=== PATIENT | female | born 1950 | race Caucasian/White ===

== ENCOUNTER 2019-06-28 19:26 | Emergency (ER) | payer MEDICARE, OTHER ==
[2019-06-28] MEDS ORDERED: Take Home: Codeine/Promethazine 10-6.25 MG/5 ML Syrup 5 ML, 2 Cup Pack PO ONE (20:51)
--- NOTE | 2019-06-29 07:20 | EDM.PDOC ---
ED HPI GENERAL MEDICAL PROBLEM - General Chief Complaint: ENT Problem Stated Complaint: SORE THROAT Time Seen by Provider: 06/28/19 20:10 Source of Information: Reports: Patient History Limitations: Reports: No Limitations - History of Present Illness INITIAL COMMENTS - FREE TEXT/NARRATIVE: Pt. presents to ER with complaints of sore throat, congestion, and cough. States that she has been experiencing these symptoms for approx. 5-6 days. Denies any chills, but states that she has not been checking her temp. Pt. states that her cough is non-productive. No chest pain or shortness of breath. No nausea, vomiting, or diarrhea. Denies any rashes. Onset: Today Onset Date: 06/29/19 Duration: Constant, Getting Worse Location: Reports: Head, Face Quality: Reports: Dull Treatments TYPE COPYIST: Reports: NSAIDS Sore Throat Pain Score (Numeric/FACES): 5 - Related Data Allergies Allergy/AdvReac Type Severity Reaction Status Date / Time No Known Allergies Allergy Verified 06/28/19 20:20 Home Meds: Home Meds . [No Known Home Meds] 06/28/19 [History] Social & Family History - Tobacco Use Smoking Status *Q: Never Smoker - Recreational Drug Use Recreational Drug Use: No ED ROS GENERAL - Review of Systems Review Of Systems: See Below Constitutional: Reports: No Symptoms HEENT: Reports: Rhinitis, Sinus Problem, Throat Pain Respiratory: Reports: Cough Cardiovascular: Reports: No Symptoms Endocrine: Reports: No Symptoms GI/Abdominal: Reports: No Symptoms : Reports: No Symptoms Musculoskeletal: Reports: No Symptoms Skin: Reports: No Symptoms Neurological: Reports: No Symptoms Psychiatric: Reports: No Symptoms Hematologic/Lymphatic: Reports: No Symptoms Immunologic: Reports: No Symptoms ED EXAM, GENERAL - Physical Exam Exam: See Below Exam Limited By: No Limitations General Appearance: Alert, WD/WN, No Apparent Distress Eye Exam: Bilateral Eye: EOMI, Normal Fundi, Normal Inspection, PERRL Ears: Normal External Exam, Normal Canal, Hearing Grossly Normal, Normal TMs Ear Exam: Bilateral Ear: Auricle Normal, Canal Normal, TM normal Nose: Nasal Drainage, Clear Rhinorrhea Throat/Mouth: Normal Lips, Normal Teeth, Normal Gums, Normal Oropharynx, Normal Voice, No Airway Compromise, Inflammation Head: Atraumatic, Normocephalic Neck: Normal Inspection, Supple, Non-Tender, Full Range of Motion Respiratory/Chest: No Respiratory Distress, Lungs Clear, Normal Breath Sounds, No Accessory Muscle Use, Chest Non-Tender Cardiovascular: Normal Peripheral Pulses, Regular Rate, Rhythm, No Edema, No Gallop, No JVD, No Murmur, No Rub Peripheral Pulses: 4+: Radial (L) GI/Abdominal: Normal Bowel Sounds, Soft, Non-Tender, No Organomegaly, No Distention, No Abnormal Bruit, No Mass, Pelvis Stable (Female) Exam: Deferred Rectal (Female) Exam: Normal Exam, Normal Rectal Tone Back Exam: Normal Inspection, Full Range of Motion Extremities: Normal Inspection, Normal Range of Motion, Non-Tender, No Pedal Edema, Normal Capillary Refill Neurological: Alert, Oriented, CN II-XII Intact, Normal Cognition, Normal Gait, Normal Reflexes, No Motor/Sensory Deficits Psychiatric: Normal Affect, Normal Mood Skin Exam: Warm, Dry, Intact, Normal Color, No Rash Lymphatic: No Adenopathy Course - Vital Signs Last Recorded V/S: Last Vital Signs Temp 37.0 C 06/28/19 19:40 Pulse 84 06/28/19 19:40 Resp 16 06/28/19 19:40 BP 157/98 H 06/28/19 19:40 Pulse Ox 97 06/28/19 19:40 - Orders/Labs/Meds Orders: Active Orders 24 hr Category Date Time Status CULTURE STREP A CONFIRMATION [] Stat Lab 06/28/19 20:13 Results STREP SCRN A RAPID W CULT CONF [] Stat Lab 06/28/19 20:13 Results Meds: Medications Discontinued Medications Generic Name Dose Route Start Last Admin Trade Name Rashmi PRN Reason Stop Dose Admin Promethazine HCl/Codeine 1 packet 06/28/19 20:51 06/28/19 21:06 Take Home: Codeine/Prometh 10-6.25 Mg, 2 Pack PO 06/28/19 20:52 1 packet ONETIME ONE Administration Departure - Departure Time of Disposition: 21:09 Disposition: Home, Self-Care 01 Clinical Impression: URI (upper respiratory infection) - Discharge Information Instructions: Upper Respiratory Infection, Adult, [id number], Codeine; Promethazine oral solution Referrals: Amanda Monzon MD [Primary Care Provider] - Forms: ED Department Discharge Additional Instructions: Home to rest Phenergan with codeine suspension 1 tsp (5ml) every 4-6 hours as needed for cough Drink plenty of fluids Tylenol as needed for discomfort Recheck in clinic in 3-5 days if not improving Stay away from others until 24 hours after your last fever Sepsis Event Note - Evaluation Sepsis Screening Result: No Definite Risk - Focused Exam Vital Signs: Vital Signs Temp Pulse Resp BP Pulse Ox 06/28/19 19:40 37.0 C 84 16 157/98 H 97 Date Exam was Performed: 06/29/19 Time Exam was Performed: 07:15 - Problem List Review Problem List Initiated/Reviewed/Updated: Yes - My Orders Last 24 Hours: My Active Orders 06/28/19 20:13 CULTURE STREP A CONFIRMATION [RM] Stat STREP SCRN A RAPID W CULT CONF [] Stat - Assessment/Plan Last 24 Hours: My Active Orders 06/28/19 20:13 CULTURE STREP A CONFIRMATION [RM] Stat STREP SCRN A RAPID W CULT CONF [] Stat Plan: Home to rest Phenergan with codeine suspension 1 tsp (5ml) every 4-6 hours as needed for cough Drink plenty of fluids Tylenol as needed for discomfort Recheck in clinic in 3-5 days if not improving Stay away from others until 24 hours after your last fever
== END 2019-06-28 21:09 | disposition home or self-care (01) ==
LOC: VM.ED 19:26
DX: J06.9 Acute upper respiratory infection, unspecified (principal)
CPT/HCPCS: 87081; 87804; 87804-59; 87880-QW; 99283; 99283-GF; A9270-GY

== ENCOUNTER 2021-01-08 06:33 | Day surgery (SDC) | payer MEDICARE, OTHER ==
[~2021-01-08 06:33] MED LIST: Lactated Ringers 1,000 ML IV SCH; Sodium Chloride 0.9% 10 ML Syringe FLUSH PRN
[2021-01-08] MEDS ORDERED: Propofol 200 MG/20 ML SDV ONE ×2 (07:47→08:55)
[2021-01-08] MEDS ORDERED: fentaNYL 100 MCG/2 ML SDV ONE (07:47)
--- NOTE | 2021-01-08 14:14 | OR ---
PREOPERATIVE DIAGNOSIS: Screening colonoscopy. POSTOPERATIVE DIAGNOSES: 1. Screening colonoscopy. 2. Sigmoid diverticulosis. PROCEDURE PERFORMED: Total flexible colonoscopy. ANESTHESIA: MAC anesthesia. COMPLICATIONS: None. BLOOD LOSS: Minimal. FINDINGS: 1. Normal total colonoscopy. 2. Tortuous sigmoid, requiring some additional time to reach the cecum. Start time 0842, cecum time 0910, stop time 0918. BOWEL PREP: [place] class 3. INDICATION FOR PROCEDURE: Liliana Reynoso is a 70-year-old female who is here for a screening colonoscopy. Her last scope was 10 years ago. She has never had polyps. No family history of colon cancer. No bloody or dark black stools. DETAILS OF PROCEDURE: Informed consent was obtained. The patient was brought to the procedure room. She was placed in left lateral decubitus position. MAC anesthesia was induced by Anesthesia colleagues. Colonoscope was introduced into the rectum and advanced all the way to the cecum. The sigmoid was fairly tortuous, required some additional time and abdominal pressure to reach the cecum. The appendiceal orifice and ileocecal valve were photographed. Colonoscope was then slowly withdrawn and no pathology was identified. A retroflexed view was obtained and the colonoscope was removed. The patient tolerated the procedure well. Recommend repeat screening colonoscopy in 10 years. RKM: 01/08/2021 09:36:46 MODL: 01/08/2021 11:40:47 /[id number]
== END 2021-01-08 10:20 | disposition home or self-care (01) ==
LOC: VM.SDS 06:33
PROVIDERS: ATTEND Student in an Organized Health Care Education/Training Program
DX: Z12.11 Encounter for screening for malignant neoplasm of colon (principal); K57.30 Diverticulosis of large intestine without perforation or abscess without bleeding; Z98.890 Other specified postprocedural states; Z79.899 Other long term (current) drug therapy; Z88.1 Allergy status to other antibiotic agents; Z91.030 Bee allergy status; Z90.49 Acquired absence of other specified parts of digestive tract
CPT/HCPCS: 00812; J2704; J3010; J7120

== ENCOUNTER 2022-03-14 18:46 | Emergency (ER) | payer MEDICARE, OTHER ==
[2022-03-14] MEDS ORDERED: Sodium Chloride 0.9% 10 ML Syringe FLUSH PRN (19:05)
[2022-03-14 19:46] LABS: ANION GAP 14.1 mmol/L (5-15)
[2022-03-14] MEDS ORDERED: Sodium Chloride 0.9% 1,000 ML IV SCH (20:15)
== END 2022-03-14 21:39 | disposition short-term general hospital (02) ==
LOC: VM.ED 18:46
DX: I44.2 Atrioventricular block, complete (principal); Z91.030 Bee allergy status; Z88.2 Allergy status to sulfonamides
CPT/HCPCS: 36415; 71045; 80053; 83880; 84484; 85025; 99285